=== PATIENT | male | born 1995 | race Caucasian/White ===

== ENCOUNTER 2019-02-15 22:35 | Emergency (ER) | payer MEDICAID ==
[~2019-02-15] VITALS: Ht 175.3 cm; Wt 69.0 kg
[~2019-02-15 22:35] MED LIST: ALBU8.5H8 IH; GUAI120015 PO; IBUP-1984 PO; PSEU-259 PO
[2019-02-15 22:43] VITALS: BP 125/70
[2019-02-16] MEDS ORDERED: ibuprofen tablet 400 MG TABLET PO ONE (04:50)
[2019-02-16] MEDS ORDERED: HYDR25SU32 RC (06:50)
[2019-02-16] MEDS ORDERED: LIDO30CR23 TP (06:50)
[2019-02-16] MEDS ORDERED: METR-159 PO (06:50)
== END 2019-02-16 07:01 | disposition home or self-care (01) ==
LOC: ER 22:35
DX: K64.9 Unspecified hemorrhoids (principal); J45.909 Unspecified asthma, uncomplicated; G89.29 Other chronic pain; Z88.6 Allergy status to analgesic agent; Z88.2 Allergy status to sulfonamides
CPT/HCPCS: 99283